=== PATIENT | female | born 1965 | race Caucasian/White ===

== ENCOUNTER 2022-08-22 08:13 | Outpatient (CLI) | payer OTHER, SELFPAY ==
--- NOTE | 2022-08-22 08:15 | MR_ITS ---
[address] [address] Phone:?[phone] Fax:?[phone] Referring Physician Information: Kameron Perry [address] [facility] [address] Phone:?[phone] Fax:?[phone] Patient:?Missy Kimbrough D.O.B:?1965 Sex:?Female Phone:?[phone] [facility] MRN:?[id number] Exam Date:?08/22/2022 ? EXAM: MRI of the RIGHT WRIST, without contrast CLINICAL HISTORY: Right wrist pain. Evaluate for internal derangement. COMPARISONS: None available. TECHNICAL: MR sequences of the right wrist were obtained: coronals: PD, T2, STIR sagittals: PD, T2 axials: PD, T2FS Sedation: None Contrast: None FINDINGS: Joints and osseous structures: There is ill-definition and irregularity of and edema-like signal throughout all portions of the scaphoid. No acute fracture, subluxation, or dislocation is seen. Focal subchondral edema-like signal within the ulnar aspect of the lunate and associated irregularity of the ulnar aspect of the proximal subchondral bone plate best seen on coronal series 6 image 7 and coronal series 9 image 21 are findings concerning for sequelae of ulnar impaction although ulnar variance appears negative in this case. There is a trace distal radioulnar joint effusion. TFCC: The triangular fibrocartilage disc appears predominantly intact without evidence of well-defined tear or high-grade injury although it must be noted that evaluation is suboptimal because of nonarthrogram technique and substantial patient motion artifact. No discrete tear of the laminae or radioulnar ligaments is seen. Ligaments: Scapholunate: No well-defined tear of the scapholunate ligament is seen although evaluation is suboptimal because of nonarthrogram technique and substantial patient motion artifact. Lunotriquetral: No evidence of tear on this nonarthrogram study although evaluation is compromised by nonarthrogram technique and patient motion artifact. Tendons: Flexors: Intact without tendinopathy or tenosynovitis. Extensors: ECU & 6th extensor compartment: Intact without polina tendinopathy tear or longitudinal splitting. Extensor retinaculum and fibrous subsheath appear intact without demonstrable subsheath injury or nonphysiologic ECU displacement. 1st - 5th extensor compartments: Intact and unremarkable. Neurovascular: Median: Unremarkable carpal tunnel without convincing neuritis or intrinsic/extrinsic masses. Ulnar: Unremarkable Guyon's canal without intrinsic/extrinsic masses. Ganglia: No ganglion is identified. IMPRESSION: 1. Ill-definition and irregularity of and edema-like signal throughout all portions of the scaphoid could reflect sequelae of previous injury and/or previous surgery but are nonspecific findings. Avascular necrosis is not excluded by the imaging appearance. Correlation with plain radiographs, clinical history, and any previous surgical history is recommended as a first step in further evaluation. 2. Focal subchondral edema-like signal within the ulnar aspect of the lunate and associated irregularity of the adjacent subchondral bone plate are findings concerning for sequelae of ulnar impaction although ulnar variance appears negative in this case. Correlate with standard plain radiographs of the right wrist. The triangular fibrocartilage disc appears predominantly intact without evidence of well-defined tear or high-grade injury although it must be noted that evaluation is suboptimal because of nonarthrogram technique and substantial patient motion artifact. 3. Trace distal radioulnar joint effusion. 4. No convincing evidence of ligamentous tear although evaluation is compromised by nonarthrogram technique and substantial patient motion artifact. RCB Electronically signed on 08/22/2022 12:14:00 PM by Shun Mulligan M.D.
== END 2022-08-22 08:14 | disposition home or self-care (01) ==
LOC: MRI 08:14
PROVIDERS: PCP Family Medicine; Visit Provider Physician Assistant
DX: M25.531 Pain in right wrist (principal); M25.431 Effusion, right wrist
CPT/HCPCS: 73221

== ENCOUNTER 2022-10-03 13:55 | Outpatient (CLI) | payer OTHER, SELFPAY ==
--- NOTE | 2022-10-03 14:00 | CRLHL7_ITS ---
For Patients: As a result of the Century Cures Act, medical imaging exams and procedure reports are released immediately into your electronic medical record. You may view this report before your referring provider. If you have questions, please contact your health care provider. HISTORY: Wrist pain. Abnormal MRI. Possible osteonecrosis. TECHNIQUE: CT right wrist without contrast. COMPARISON: MRI right wrist 08/22/2022. FINDINGS: Heterogeneous sclerosis in the proximal 2/3 of the scaphoid. Mild fragmentation of the dorsal aspect of the proximal pole of the scaphoid. Mild volume loss of the proximal pole of the scaphoid. Diffuse osteopenia otherwise. No subluxation. No arthrosis. 3 mm negative ulnar variance. Muscle mass is maintained. IMPRESSION: 1. 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 2. Osteopenia. Please note that all CT scans at this facility use dose modulation, iterative reconstruction, and/or weight-based dosing when appropriate to reduce radiation dose to as low as reasonably achievable. Dictated by Saeid Polo MD @ 10/04/2022 11:08:43 AM (Electronically Signed)
--- NOTE | 2022-10-03 14:00 | CRLHL7_ITS ---
For Patients: As a result of the Century Cures Act, medical imaging exams and procedure reports are released immediately into your electronic medical record. You may view this report before your referring provider. If you have questions, please contact your health care provider. HISTORY: Wrist pain. TECHNIQUE: CT left wrist without contrast. COMPARISON: None. FINDINGS: Punctate calcification along the volar margin of the lunate with underlying minimal cortical deformity (sagittal series 6, image 47). No dislocation. Shallow foci of cortical irregularity of the distal radial articular cortex at the radiolunate articulation may be from mild degenerative cyst-like change. No arthrosis otherwise. Osteopenia. No lytic or blastic bone lesions. Muscle mass is maintained. IMPRESSION: 1. Punctate calcification along the volar cortex of the lunate with underlying minimal cortical deformity may be a tiny subacute or remote fracture. No other fracture. 2. Minimal irregularity of the distal articular cortex of the radius at the radiolunate articulation are nonspecific but may be minimal degenerative subarticular cyst-like change or related to osteopenia. No arthrosis otherwise. Please note that all CT scans at this facility use dose modulation, iterative reconstruction, and/or weight-based dosing when appropriate to reduce radiation dose to as low as reasonably achievable. Dictated by Saeid Polo MD @ 10/04/2022 11:05:14 AM (Electronically Signed)
== END 2022-10-03 13:56 | disposition home or self-care (01) ==
LOC: CT 13:56
PROVIDERS: PCP Family Medicine; Visit Provider Physician Assistant
DX: M25.531 Pain in right wrist (principal); M25.532 Pain in left wrist; M85.88 Other specified disorders of bone density and structure, other site
CPT/HCPCS: 73200

== ENCOUNTER 2024-01-29 14:40 | Outpatient (CLI) | payer OTHER, SELFPAY | END 2024-01-29 14:41 | disposition home or self-care (01) | LOC: NFLDREF 02-12 11:06 | PROVIDERS: PCP Family Medicine; Referring Provider Family Medicine; Visit Provider Registered Nurse | DX: R31.29 Other microscopic hematuria (principal); R10.9 Unspecified abdominal pain | CPT/HCPCS: 87086 ==

== ENCOUNTER 2024-06-10 09:22 | Outpatient (CLI) | payer OTHER, SELFPAY ==
--- NOTE | 2024-06-10 11:12 | W.ANESCHARGE ---
Anesthesia Charges Start Date/Time Anesthesia Start Date: 06/10/24 Anesthesia Start Time: 10:12 Stop Date/Time Anesthesia Stop Date: 06/10/24 Anesthesia Stop Time: 11:13
--- NOTE | 2024-06-10 11:15 | W.ANESCHARGE ---
Anesthesia Charges Start Date/Time Anesthesia Start Date: 06/10/24 Anesthesia Start Time: 10:12 Stop Date/Time Anesthesia Stop Date: 06/10/24 Anesthesia Stop Time: 11:13
== END 2024-06-10 09:23 | disposition home or self-care (01) ==
LOC: OP CLINIC 09:24
PROVIDERS: PCP Family Medicine; Visit Provider Surgery
DX: Z12.11 Encounter for screening for malignant neoplasm of colon (principal); K62.1 Rectal polyp; K63.89 Other specified diseases of intestine; K64.4 Residual hemorrhoidal skin tags; R19.8 Other specified symptoms and signs involving the digestive system and abdomen
CPT/HCPCS: 00813; 43239; 45380; 45385; 88305; J2704

== ENCOUNTER 2025-01-13 12:05 | Outpatient (CLI) | payer OTHER, SELFPAY ==
--- NOTE | 2025-01-13 13:28 | P.ANES_ITS ---
Anesthesia Charges Start Date/Time Anesthesia Start Date: 01/13/25 Anesthesia Start Time: 12:41 Stop Date/Time Anesthesia Stop Date: 01/13/25 Anesthesia Stop Time: 13:27 Coding CPT Codes CPT Codes: AYO LWR INTST NDAK NOS - 25800 ([id number]) P1 - NORMAL HEALTHY PATIENT, QK - RUBBER CURER 2-4 CNCRNT ANES PROC, QX - CONVEYOR MONITOR SVC W/ MED DIRECTION
--- NOTE | 2025-01-13 13:28 | W.ANESCHARGE ---
Anesthesia Charges Start Date/Time Anesthesia Start Date: 01/13/25 Anesthesia Start Time: 12:41 Stop Date/Time Anesthesia Stop Date: 01/13/25 Anesthesia Stop Time: 13:27 Coding CPT Codes CPT Codes: AYO LWR INTST NDNE NOS - 57302 ([id number]) P1 - NORMAL HEALTHY PATIENT, QK - BILLBOARD MECHANIC 2-4 CNCRNT ANES PROC, QX - SCREEN STRETCHER SVC W/ MED DIRECTION
--- NOTE | 2025-01-13 13:29 | P.ANES_ITS ---
Anesthesia Charges Start Date/Time Anesthesia Start Date: 01/13/25 Anesthesia Start Time: 12:41 Stop Date/Time Anesthesia Stop Date: 01/13/25 Anesthesia Stop Time: 13:27 Coding CPT Codes CPT Codes: AYO LWR INTST NDDE NOS - 15875 ([id number]) P1 - NORMAL HEALTHY PATIENT, QK - INVESTIGATION LIEUTENANT 2-4 CNCRNT ANES PROC, QX - MIRROR INSPECTOR SVC W/ MED DIRECTION
--- NOTE | 2025-01-13 13:29 | W.ANESCHARGE ---
Anesthesia Charges Start Date/Time Anesthesia Start Date: 01/13/25 Anesthesia Start Time: 12:41 Stop Date/Time Anesthesia Stop Date: 01/13/25 Anesthesia Stop Time: 13:27 Coding CPT Codes CPT Codes: AYO LWR INTST NDMS NOS - [id number] ([id number]) P1 - NORMAL HEALTHY PATIENT, QK - PSYCHIATRIC AIDES TEACHER 2-4 CNCRNT ANES PROC, QX - CLOCK AND WATCH HANDS MOUNTER SVC W/ MED DIRECTION
== END 2025-01-13 12:06 | disposition home or self-care (01) ==
LOC: OP CLINIC 12:07
PROVIDERS: PCP Family Medicine; Visit Provider Surgery
DX: Z12.11 Encounter for screening for malignant neoplasm of colon (principal); D12.0 Benign neoplasm of cecum; D12.2 Benign neoplasm of ascending colon; D12.8 Benign neoplasm of rectum; Z86.0100 Personal history of colon polyps, unspecified
CPT/HCPCS: 00811; 45385; 88305; J2704

== ENCOUNTER 2025-09-05 13:10 | Outpatient (CLI) | payer OTHER, SELFPAY | END 2025-09-05 13:11 | disposition home or self-care (01) | LOC: NFLDREF 09-08 18:26 | PROVIDERS: PCP Family Medicine; Referring Provider Family Medicine; Visit Provider Physician Assistant | DX: R10.A1 Flank pain, right side (principal) | CPT/HCPCS: 87086 ==